=== PATIENT | female | born 1995 | race Two or more races ===

== ENCOUNTER 2020-04-15 14:24 | Emergency (ER) | payer OTHER ==
[~2020-04-15] VITALS: Ht 157.5 cm; Wt 117.9 kg
[2020-04-15] MEDS ORDERED: PROAIR HFA8.5 GM (14:30)
[2020-04-15] MEDS ORDERED: PROAIR RESPICL90 MCG IH (17:26)
[2020-04-15] MEDS ORDERED: MEDROLPACK PO (17:26)
[2020-04-15] MEDS ORDERED: SINGULAIR10 MG PO (17:26)
[2020-04-15] MEDS ORDERED: TUSNEL LIQUID178 ML PO (17:26)
[2020-04-15] MEDS ORDERED: ALBUTEROL2.5 MG/3 M IH (17:26)
[2020-04-15] MEDS ORDERED: ZITHROMAX500 MG PO (17:27)
== END 2020-04-15 17:33 | disposition home or self-care (01) ==
LOC: ER 14:24
DX: J45.998 Other asthma (principal)

== ENCOUNTER 2021-05-29 01:15 | Emergency (ER) | payer OTHER ==
[~2021-05-29] VITALS: Ht 154.9 cm; Wt 117.9 kg
[~2021-05-29 01:15] MED LIST: ALBUTEROL2.5 MG/3 M IH; MEDROLPACK PO; PROAIR HFA8.5 GM; PROAIR RESPICL90 MCG IH; SINGULAIR10 MG PO; TUSNEL LIQUID178 ML PO; ZITHROMAX500 MG PO
[2021-05-29] MEDS ORDERED: MUCINEX DM ER1 EAC1 PO (05:12)
[2021-05-29] MEDS ORDERED: MEDROLPACK PO (05:12)
[2021-05-29] MEDS ORDERED: LEVALBUTER1.25 MG/3 IH (05:12)
[2021-05-29] MEDS ORDERED: AZITHROMYCIN500 MG PO (05:12)
[2021-05-29] MEDS ORDERED: PROAIR HFA8.5 GM IH (05:12)
== END 2021-05-29 05:21 | disposition home or self-care (01) ==
LOC: ER 01:15
DX: J45.901 Unspecified asthma with (acute) exacerbation (principal); J06.9 Acute upper respiratory infection, unspecified; Z20.822 Contact with and (suspected) exposure to COVID-19

== ENCOUNTER 2021-08-25 13:15 | Emergency (ER) | payer OTHER ==
[~2021-08-25] VITALS: Ht 157.5 cm; Wt 118.4 kg
[~2021-08-25 13:15] MED LIST changes: +AZITHROMYCIN500 MG PO; +LEVALBUTER1.25 MG/3 IH; +MUCINEX DM ER1 EAC1 PO; +PROAIR HFA8.5 GM IH
[2021-08-25] MEDS ORDERED: TUSNEL LIQUID178 ML PO (16:39)
[2021-08-25] MEDS ORDERED: ALBUTEROL1.25 MG/3 IH (16:39)
[2021-08-25] MEDS ORDERED: MEDROLPACK PO (16:39)
[2021-08-25] MEDS ORDERED: SINGULAIR10 MG PO (16:39)
== END 2021-08-25 16:45 | disposition home or self-care (01) ==
LOC: ER 13:15
DX: J45.901 Unspecified asthma with (acute) exacerbation (principal); J40 Bronchitis, not specified as acute or chronic; Z20.828 Contact with and (suspected) exposure to other viral communicable diseases

== ENCOUNTER 2022-04-30 21:36 | Emergency (ER) | payer OTHER ==
[~2022-04-30] VITALS: Ht 154.9 cm; Wt 122.5 kg
[~2022-04-30 21:36] MED LIST changes: +ALBUTEROL1.25 MG/3 IH
[2022-05-01] MEDS ORDERED: ZYNCOF 20-400120 ML PO (06:35)
[2022-05-01] MEDS ORDERED: ALBUTEROL2.5 MG/3 M IH (06:35)
[2022-05-01] MEDS ORDERED: SINGULAIR 10MG10 MG PO (06:35)
[2022-05-01] MEDS ORDERED: ZYRTEC10 M3 PO (06:35)
== END 2022-05-01 06:41 | disposition home or self-care (01) ==
LOC: ER 21:36
DX: J45.998 Other asthma (principal); Z91.018 Allergy to other foods; Z91.010 Allergy to peanuts; Z20.822 Contact with and (suspected) exposure to COVID-19

== ENCOUNTER 2022-05-16 17:43 | Emergency (ER) | payer OTHER ==
[~2022-05-16] VITALS: Ht 154.9 cm; Wt 131.1 kg
[~2022-05-16 17:43] MED LIST changes: +SINGULAIR 10MG10 MG PO; +ZYNCOF 20-400120 ML PO; +ZYRTEC10 M3 PO
== END 2022-05-16 21:56 | disposition home or self-care (01) ==
LOC: ER 17:43
DX: O99.351 Diseases of the nervous system complicating pregnancy, first trimester (principal); F41.8 Other specified anxiety disorders; Z91.018 Allergy to other foods; Z3A.14 14 weeks gestation of pregnancy

== ENCOUNTER 2022-05-27 02:20 | Emergency (ER) | payer OTHER ==
[~2022-05-27] VITALS: Ht 154.9 cm; Wt 131.5 kg
== END 2022-05-27 04:05 | disposition home or self-care (01) ==
LOC: ER 02:20
DX: O26.892 Other specified pregnancy related conditions, second trimester (principal); Z3A.16 16 weeks gestation of pregnancy; J45.909 Unspecified asthma, uncomplicated; Z91.010 Allergy to peanuts; Z91.018 Allergy to other foods

== ENCOUNTER 2022-10-30 12:43 | Inpatient (IN) | payer OTHER ==
[~2022-10-30] VITALS: Ht 154.9 cm; Wt 3.2 kg
[2022-11-06 13:04] LABS: HEMATOCRIT 35.1 % (36.0-45.00); HEMOGLOBIN 11.4 g/dL (12.0-15.00); MEAN CORPUSCULAR HEMOGLOBIN 26.7 pg (27.00-32.0); MEAN CORPUSCULAR HGB CONC 32.6 g/dl (32.0-36.0); PLATELET COUNT 264 K/uL (150-450); RED BLOOD COUNT 4.27 M/uL (4.00-6.00); RED CELL DISTRIBUTION WIDTH 15.2 % (11.5-14.5)
[2022-11-06 13:23] LABS: PH,URINE 5.5 (5.0-8.0); URINE APPEARANCE Clear; URINE BILIRRUBIN Negative (NEGATIVE); URINE BLOOD Negative; URINE COLOR Yellow; URINE GLUCOSE Negative (NEGATIVE); URINE LEUKOCYTE Negative; URINE NITRATE Negative
[2022-11-06 13:24] LABS: URINE BACTERIA 3129.6 uL (0.0-1933); URINE EPITHELIAL CELLS 23.6 uL (0.0-38.8); URINE RBC 4.1 uL (0.0-20.8); URINE WBC 48.3 uL (0.0-23.2)
[2022-11-06 13:26] LABS: ALBUMIN 2.3 gm/dL (3.4-5.0); BILIRUBIN TOTAL 0.2 mg/dL (0.3-1.2); CALCIUM 8.5 mg/dL (8.5-10.1); CREATININE SERUM 0.54 mg/dL (0.55-1.02); GFR 135.42; GLOBULINA 3.9 G/DL (2.4-3.5); POTASSIUM 4.18 mEq/L (3.5-5.1); TOTAL PROTEIN 6.2 gm/dL (6.4-8.2)
[2022-11-06 13:34] LABS: INR 0.94; PARTIAL THROMBOPLASTIN TIME 27.2 SECONDS (22.0-34.0); PROTHROMBIN TIME 9.9 SECONDS (9.0-11.5)
[2022-11-06 13:35] LABS: URINE PROTEIN 100 (NEGATIVE)
[2022-11-06] MEDS ORDERED: PRENATABS RX T1 EACH PO (14:11)
[2022-11-08 16:17] LABS: HEMATOCRIT 35.8 % (36.0-45.00); HEMOGLOBIN 11.1 g/dL (12.0-15.00); MEAN CELL VOLUME 83.3 fL (80.00-100.00); MEAN CORPUSCULAR HEMOGLOBIN 25.9 pg (27.00-32.0); MEAN CORPUSCULAR HGB CONC 31.1 g/dl (32.0-36.0); PLATELET COUNT 236 K/uL (150-450)
[2022-11-09 10:24] LABS: HEMATOCRIT 33.7 % (36.0-45.00); HEMOGLOBIN 10.6 g/dL (12.0-15.00); MEAN CELL VOLUME 83.7 fL (80.00-100.00); MEAN CORPUSCULAR HEMOGLOBIN 26.3 pg (27.00-32.0); MEAN CORPUSCULAR HGB CONC 31.4 g/dl (32.0-36.0); PLATELET COUNT 248 K/uL (150-450); RED BLOOD COUNT 4.03 M/uL (4.00-6.00); RED CELL DISTRIBUTION WIDTH 15.2 % (11.5-14.5)
[2022-11-11] MEDS ORDERED: KETO10TA2 PO (10:37)
[2022-11-11] MEDS ORDERED: LOVENOX40 MG/0.4 SUBCUTANEO (10:37)
[2022-11-11] MEDS ORDERED: OXYC1TAB9 PO (10:38)
== END 2022-11-11 12:11 | disposition home or self-care (01) | DRG 785 ==
LOC: LDR 11-07 22:42 → O/R 11-07 22:42 → OB/GYN 11-08 10:35
PROVIDERS: Obstetrics & Gynecology Maternal & Fetal Medicine; ADMIT Obstetrics & Gynecology; ATTEND Obstetrics & Gynecology
PROC: 4A1HXCZ Monitoring of Products of Conception, Cardiac Rate, External Approach (ICD-10-PCS; 2022-11-07)
PROC: 0UB70ZZ Excision of Bilateral Fallopian Tubes, Open Approach (ICD-10-PCS; 2022-11-08)
PROC: 10D00Z1 Extraction of Products of Conception, Low, Open Approach (ICD-10-PCS; principal; 2022-11-08 09:00)
DX: O82 Encounter for cesarean delivery without indication (principal); Z3A.39 39 weeks gestation of pregnancy; Z37.0 Single live birth; Z20.822 Contact with and (suspected) exposure to COVID-19; Z30.2 Encounter for sterilization

== ENCOUNTER 2024-08-18 12:24 | Inpatient (IN) | payer OTHER ==
[~2024-08-18] VITALS: Ht 154.9 cm; Wt 90.7 kg
[~2024-08-18 12:24] MED LIST changes: +KETO10TA2 PO; +LOVENOX40 MG/0.4 SUBCUTANEO; +OXYC1TAB9 PO; +PRENATABS RX T1 EACH PO
[2024-08-18] MEDS ORDERED: LACTOBACILLUS ACIDOPHILUS 1 CAP CAP PO ONE (14:45)
[2024-08-18] MEDS ORDERED: FAMOTIDINE/PF 20 MG/2 ML VIAL IV ONE (14:45)
[2024-08-18] MEDS ORDERED: ONDANSETRON HCL 2 MG/ML VIAL IV ONE (14:45)
[2024-08-18] MEDS ORDERED: 0.9 % SODIUM CHLORIDE 1,000 ML IV ONE (14:45)
[2024-08-18 15:28] LABS: BASO % 1.1 % (0.1-1.2); EOS # 0.00 (0.04-0.54); EOS % 0.0 % (0.7-7.0); LYMPH # 0.66 (1.18-3.74); LYMPH % 37.3 % (19.3-53.1); MEAN PLATELET VOLUME 12.10 fl (9.4-12.4); MONO # 0.21 (0.24-0.82); MONO % 11.9 % (4.7-12.5); NEUT # 0.85 (1.56-6.13); NEUT % 48.0 % (34.0-71.1); RED CELL DISTRIBUTION WIDTH 12.9 % (11.6-14.4)
[2024-08-18 15:45] LABS: ALT/SGPT 45 U/L (12-78); AST/SGOT 88 U/L (15-37); BILIRUBIN TOTAL 0.30 mg/dL (0.3-1.2); BILIRUBIN,CONJUGATED < 0.10 mg/dL (0.0-0.2); BUN CREA RATIO 13 (7.0-25.0); CREATININE SERUM 0.68 mg/dL (0.55-1.02); GFR 102.29; GLOBULINA 4.4 G/DL (2.4-3.5); GLUCOSE FASTING 99 mg/dL (65-100); OSMOLALITY SERUM 274 MOSM/KG (275-295)
[2024-08-18 16:04] LABS: COVID-19 AG NEGATIVE (NEGATIVE)
[2024-08-18] MEDS ORDERED: OSELTAMIVIR PHOSPHATE 75 MG CAPSULE PO ONE (16:15)
[2024-08-18 17:29] LABS: URINE APPEARANCE Clear; URINE BILIRRUBIN Small (NEGATIVE); URINE BLOOD Moderate; URINE COLOR Dark Yellow; URINE GLUCOSE Negative (NEGATIVE); URINE LEUKOCYTE Negative; URINE NITRATE Negative; URINE PROTEIN >=1000 (NEGATIVE); URINE UROBILINOGEN 1.0 E.U./dl
[2024-08-18 17:33] LABS: URINE BACTERIA 1160.3 uL (0.0-1933); URINE EPITHELIAL CELLS 28.7 uL (0.0-38.8); URINE RBC 35.9 uL (0.0-20.8); URINE WBC 10.3 uL (0.0-23.2)
[2024-08-18 17:45] LABS: URINE CAST 1.31 uL (0.0-1.40); URINE KETONE 40 (NEGATIVE)
[2024-08-18] MEDS ORDERED: 0.9 % SODIUM CHLORIDE 1,000 ML IV SCH (18:15)
[2024-08-18] MEDS ORDERED: PANTOPRAZOLE SODIUM 40 MG/VIAL VIAL IV SCH (18:17)
[2024-08-18] MEDS ORDERED: ACETAMINOPHEN 500 MG GEL..CAP PO PRN (18:30)
[2024-08-18] MEDS ORDERED: ONDANSETRON HCL 4 MG in 0.9 % SODIUM CHLORIDE 50 ML IV PRN (18:30)
[2024-08-18 23:25] VITALS: BP 100/69; O2SAT 96
[2024-08-18 23:51] LABS: INR 1.1
[2024-08-19 04:00] VITALS: BP 98/61; O2SAT 95
[2024-08-19 06:34] LABS: BASO % 1.4 % (0.1-1.2); EOS # 0.03 (0.04-0.54); EOS % 1.0 % (0.7-7.0); LYMPH # 2.01 (1.18-3.74); LYMPH % 69.6 % (19.3-53.1); MEAN PLATELET VOLUME 11.20 fl (9.4-12.4); MONO # 0.24 (0.24-0.82); MONO % 8.3 % (4.7-12.5); NEUT # 0.52 (1.56-6.13); NEUT % 18.0 % (34.0-71.1); RED CELL DISTRIBUTION WIDTH 12.8 % (11.6-14.4)
[2024-08-19 07:39] LABS: BAND MAN 1.0 %; EOSINOPHIL MAN 1.0 %; LYMPHOCYTE MAN 55.0 %; MONOCYTE MAN 7.0 %; NEUTROPHILS MAN 25.0 %
[2024-08-19 08:39] VITALS: BP 109/73
[2024-08-19] MEDS ORDERED: OSELTAMIVIR PHOSPHATE 75 MG CAPSULE PO SCH (09:00)
[2024-08-19] MEDS ORDERED: THIAMINE HCL 100 MG TABLET PO NR (12:00)
[2024-08-19] MEDS ORDERED: MULTIVIT INFUSN,ADULT 4,VIT K 10 ML VIAL IV NR (12:00)
[2024-08-19] MEDS ORDERED: Cyanocobalamin/Mecobalamin 1 TAB.SL SL SCH (17:00)
[2024-08-19 19:35] VITALS: BP 96/60
[2024-08-20 02:24] VITALS: BP 98/65; O2SAT 98
[2024-08-20 06:48] LABS: BASO % 0.8 % (0.1-1.2); EOS # 0.09 (0.04-0.54); EOS % 1.7 % (0.7-7.0); LYMPH # 3.73 (1.18-3.74); LYMPH % 71.3 % (19.3-53.1); MEAN PLATELET VOLUME 11.30 fl (9.4-12.4); MONO # 0.53 (0.24-0.82); MONO % 10.1 % (4.7-12.5); NEUT # 0.79 (1.56-6.13); NEUT % 15.1 % (34.0-71.1); RED CELL DISTRIBUTION WIDTH 12.9 % (11.6-14.4)
[2024-08-20 07:07] LABS: ALT/SGPT 33.0 U/L (12-78); AST/SGOT 56.0 U/L (15-37); BILIRUBIN TOTAL 0.31 mg/dL (0.3-1.2); BUN CREA RATIO 16.0 (7.0-25.0); CREATININE SERUM 0.57 mg/dL (0.55-1.02); GFR 125.4; GLOBULINA 3.3 G/DL (2.4-3.5); GLUCOSE FASTING 90.0 mg/dL (65-100); LDH 360.0 U/L (84-246); OSMOLALITY SERUM 285.0 MOSM/KG (275-295)
[2024-08-20 07:45] LABS: EOSINOPHIL MAN 1.0 %; LYMPHOCYTE MAN 65.0 %; MONOCYTE MAN 14.0 %; NEUTROPHILS MAN 19.0 %
[2024-08-20 08:27] VITALS: BP 90/60
[2024-08-20] MEDS ORDERED: THIAMINE HCL 100 MG TABLET PO SCH (09:00)
[2024-08-20] MEDS ORDERED: MULTIVIT INFUSN,ADULT 4,VIT K 10 ML VIAL IV SCH (09:00)
[2024-08-20] MEDS ORDERED: POTASSIUM CHLORIDE IN WATER 100 ML IV NR (12:15)
[2024-08-20] MEDS ORDERED: CALCIUM CARBONATE/VITAMIN D3 1 TAB TABLET PO SCH (17:00)
[2024-08-20 17:53] VITALS: BP 103/67; O2SAT 96
[2024-08-21 02:56] VITALS: BP 98/65; O2SAT 98
[2024-08-21 08:46] VITALS: BP 114/73
[2024-08-21 08:50] LABS: BASO % 0.4 % (0.1-1.2); EOS # 0.12 (0.04-0.54); EOS % 2.6 % (0.7-7.0); LYMPH # 3.20 (1.18-3.74); LYMPH % 69.9 % (19.3-53.1); MEAN PLATELET VOLUME 12.30 fl (9.4-12.4); MONO # 0.32 (0.24-0.82); MONO % 7.0 % (4.7-12.5); NEUT # 0.88 (1.56-6.13); NEUT % 19.2 % (34.0-71.1); RED CELL DISTRIBUTION WIDTH 12.7 % (11.6-14.4)
[2024-08-21 09:50] LABS: EOSINOPHIL MAN 2.0 %; LYMPHOCYTE MAN 67.0 %; MONOCYTE MAN 10.0 %; NEUTROPHILS MAN 15.0 %
[2024-08-21 16:47] VITALS: BP 122/86; O2SAT 100
[2024-08-21] MEDS ORDERED: POTASSIUM CHLORIDE IN WATER 100 ML IV STA (17:58)
[2024-08-21] MEDS ORDERED: MAGNESIUM SULFATE 1,000 MG in 0.9 % SODIUM CHLORIDE 50 ML IV ONE (18:00)
== END 2024-08-21 18:53 | disposition left against medical advice (07) | DRG 194 ==
LOC: ER 12:24 → MEDJ 18:34 → MEDI 18:34 → MEDJ 23:07
PROVIDERS: Emergency Medicine; General Practice; Internal Medicine Hematology & Oncology; ADMIT Internal Medicine; ATTEND Internal Medicine
PROC: 8E0ZXY6 Isolation (ICD-10-PCS; principal; 2024-08-18)
DX: J10.1 Influenza due to other identified influenza virus with other respiratory manifestations (principal); A90 Dengue fever [classical dengue]; D69.6 Thrombocytopenia, unspecified; E86.0 Dehydration; N93.8 Other specified abnormal uterine and vaginal bleeding; D72.819 Decreased white blood cell count, unspecified; F17.211 Nicotine dependence, cigarettes, in remission; E87.6 Hypokalemia; E83.51 Hypocalcemia; Z53.29 Procedure and treatment not carried out because of patient's decision for other reasons; Z91.010 Allergy to peanuts; Z91.013 Allergy to seafood